=== PATIENT | male | born 1955 | race Two or more races ===

== ENCOUNTER 2022-06-15 18:04 | Inpatient (IN) | payer MEDICARE ==
[~2022-06-15] VITALS: Ht 170.2 cm; Wt 63.5 kg
[2022-06-15 18:56] LABS: HEMATOCRIT 40.3 % (36.7-47.1); MEAN CORPUSCULAR HEMOGLOBIN 31.2 uug (23.8-33.4); MEAN CORPUSCULAR VOLUME 91.3 fL (73.0-96.2); PLATELET COUNT (AUTO) 200 K/uL (152-348)
[2022-06-15 19:45] LABS: ETHANOL < 3 MG/DL (0-0)
[2022-06-15 19:46] LABS: THYROID STIMULATING HORMONE 0.535 mIU/mL (0.358-3.740)
[2022-06-15 19:53] LABS: CARBON DIOXIDE 26 mmol/L (21-32); CHLORIDE 101 mmol/L (98-107); CREATININE 1.2 mg/dL (0.6-1.3); GLUCOSE 100 mg/dL (74-106); POTASSIUM 3.4 mmol/L (3.5-5.1); UREA NITROGEN, BLOOD 27 mg/dL (7-18)
[2022-06-15 19:58] LABS: ALANINE AMINOTRANSFERASE 100 U/L (16-63); ALKALINE PHOSPHATASE 75 U/L (50-136); ASPARTATE AMINOTRANSFERASE 362 U/L (15-37); BILIRUBIN,DIRECT 0.2 mg/dL (0.0-0.2); BILIRUBIN,TOTAL 0.6 mg/dL (0.2-1.0); TOTAL PROTEIN, SERUM 7.5 g/dL (6.4-8.2)
[2022-06-15 20:00] LABS: ACETAMINOPHEN < 2.0 ug/mL (10-30)
[2022-06-15 20:50] LABS: *BILIRUBIN,URIN NEGATIVE (NEGATIVE); *BLOOD, URINE 2+ (NEGATIVE); *CLARITY,URINE CLEAR (CLEAR); *COLOR,URINE YELLOW (YELLOW); *KETONES,URINE TRACE (NEGATIVE); *UROBILINOGEN,URINE 0.2 E.U./dl (NORMAL); LEUKOCYTE ESTERASE ,URINE NEGATIVE (NEGATIVE); NITRITE, URINE NEGATIVE (NEGATIVE); PH,URINE 5.5 (5.0-8.0); UGLUCOSE NEGATIVE (NEGATIVE)
[2022-06-15 20:54] LABS: BACTERIA,URINE FEW /HPF (NONE SEEN); SQUAMOUS EPITHELIAL CELL,UR NONE SEEN /HPF (NONE SEEN); WBC,URINE 0-3 /HPF (0-3)
[2022-06-15 20:59] LABS: *AMPHETAMINE, URINE POSITIVE (NEGATIVE); *CANNABINOID, URINE NEGATIVE (NEGATIVE); *COCCAINE, URINE NEGATIVE (NEGATIVE); *OPIATE, URINE NEGATIVE (NEGATIVE); *PHENCYCLIDINE SCREEN,URINE NEGATIVE (NEGATIVE)
[2022-06-15 22:30] VITALS: BP 150/97
[2022-06-15] MEDS ORDERED: REMEDY ESSENTIAL ZINC PASTE 113 GM TP PRN (23:00)
[2022-06-15] MEDS ORDERED: ONDANSETRON 4 MG/2 ML VIAL IV PRN (23:00)
[2022-06-15] MEDS: ZOLPIDEM 5 MG TABLET PO PRN (23:44)
[2022-06-16] MEDS: ACETAMINOPHEN 325 MG TABLET PO PRN ×2 (03:55→22:30)
[2022-06-16 04:00] VITALS: BP 130/87
[2022-06-16 07:05] LABS: POTASSIUM 3.3 mmol/L (3.5-5.1)
[2022-06-16 07:06] LABS: MEAN CORPUSCULAR HEMOGLOBIN 32.1 uug (23.8-33.4); MEAN CORPUSCULAR VOLUME 92.2 fL (73.0-96.2); PLATELET COUNT (AUTO) 195 K/uL (152-348)
[2022-06-16] MEDS: POTASSIUM CHLORIDE 20 MEQ TAB.PRT.SR PO ONE ×2 (10:19→10:44)
[2022-06-16 11:44] VITALS: BP 133/85
[2022-06-16 15:43] VITALS: BP 124/83
[2022-06-16 15:56] LABS: *BILIRUBIN,URIN NEGATIVE (NEGATIVE); *BLOOD, URINE NEGATIVE (NEGATIVE); *CLARITY,URINE CLEAR (CLEAR); *COLOR,URINE YELLOW (YELLOW); *KETONES,URINE 1+ (NEGATIVE); *UROBILINOGEN,URINE 0.2 E.U./dl (NORMAL); LEUKOCYTE ESTERASE ,URINE NEGATIVE (NEGATIVE); NITRITE, URINE NEGATIVE (NEGATIVE); PH,URINE 6.5 (5.0-8.0); UGLUCOSE NEGATIVE (NEGATIVE)
[2022-06-16 16:09] LABS: *CREATININE,URINE 73.2 mg/dL (30-125); *URINE TOTAL PROTEIN RANDOM 65.7 mg/dL (<150/24HR)
[2022-06-16 20:00] VITALS: BP 129/79
[2022-06-16] MEDS ORDERED: OLANZAPINE ZYDIS 5 MG TAB.RAPDIS PO SCH (21:30)
[2022-06-16] MEDS: ZOLPIDEM 5 MG TABLET PO PRN (22:30)
[2022-06-17 04:00] VITALS: BP 140/94
[2022-06-17 07:15] LABS: HEMATOCRIT 41.6 % (36.7-47.1); MEAN CORPUSCULAR HEMOGLOBIN 31.2 uug (23.8-33.4); PLATELET COUNT (AUTO) 212 K/uL (152-348)
[2022-06-17 07:40] LABS: BILIRUBIN,TOTAL 0.4 mg/dL (0.2-1.0); MAGNESIUM 2.3 mg/dL (1.8-2.4); PHOSPHOROUS 2.6 mg/dL (2.5-4.9); POTASSIUM 3.4 mmol/L (3.5-5.1); TOTAL PROTEIN, SERUM 7.4 g/dL (6.4-8.2)
[2022-06-17] MEDS ORDERED: POTASSIUM CHLORIDE 20 MEQ TAB.PRT.SR PO ONE (10:30)
[2022-06-17] MEDS: ACETAMINOPHEN 325 MG TABLET PO PRN (11:15)
[2022-06-17 11:58] VITALS: BP 134/86
[2022-06-17] MEDS ORDERED: OLAN5TAB6 PO (13:37)
[2022-06-17] MEDS ORDERED: ACET325T53 PO (13:37)
[2022-06-18 12:07] LABS: A/G RATIO 0.8 (0.7-1.7); ALBUMIN 2.9 g/dL (2.9-4.4); ALPHA-1-GLOBULIN 0.2 g/dL (0.0-0.4); ALPHA-2-GLOBULIN 0.9 g/dL (0.4-1.0); GAMMA GLOBULIN 1.4 g/dL (0.4-1.8); GLOBULIN, TOTAL 3.6 g/dL (2.2-3.9); M-SPIKE 0.6 g/dL (Not Observed)
[2022-06-18 13:06] LABS: HEPATITIS B SURFACE AG Negative (Negative)
== END 2022-06-17 13:55 | disposition home health service (06) | DRG 177 ==
LOC: ER 18:04 → MEDSURG3 22:15
PROVIDERS: ADMIT Nurse Practitioner Acute Care; ATTEND Nurse Practitioner Acute Care
DX: U07.1 COVID-19 (principal); G93.41 Metabolic encephalopathy; N17.0 Acute kidney failure with tubular necrosis; F03.93 Unspecified dementia, unspecified severity, with mood disturbance; F29 Unspecified psychosis not due to a substance or known physiological condition; E87.6 Hypokalemia; Z73.6 Limitation of activities due to disability; F39 Unspecified mood [affective] disorder; G62.9 Polyneuropathy, unspecified; R74.01 Elevation of levels of liver transaminase levels
CPT/HCPCS: 36415; 71045; 83735; 83970; 84100; 84153; 84155; 84156; 84165; 84300; 84443; 85025; 86706; 86803; 87340; A4663; G0378; G0480